=== PATIENT | male | born 1970 | race Caucasian/White ===

== ENCOUNTER 2017-07-31 00:37 | Emergency (ER) | payer SELFPAY ==
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
[2017-07-31 02:03] VITALS: BP 120/78
--- NOTE | 2017-08-01 14:35 | CR ---
EXAM DATE: 07/31/17 PATIENT'S AGE: 46 Patient: ERIK ROBINS Facility: [place], [place] Site . Site : [id number] Study: XRay Chest [id number]/24/[id number] 1:15:33 AM Ordering Physician: Regan Delatorre Final Report: INDICATION: Shortness of breath TECHNIQUE: Chest radiograph 3 views COMPARISON: None FINDINGS: Mediastinum: The heart silhouette is normal in size and morphology. The mediastinum is normal in appearance. Lungs: Bilateral hyperinflation is present and suggestive of moderate pulmonary emphysema. No sign of pleural effusion seen. No pneumothorax is identified. Bones and soft tissue: Unremarkable for age. IMPRESSION: 1. Bilateral hyperinflation is present and suggestive of moderate pulmonary emphysema. Dictated by: Vladislav Soares MD @ 07/31/2017 01:17:42 (Electronic Signature) Report Signed by Proxy. [facility]
== END 2017-07-31 02:00 | disposition home or self-care (01) ==
LOC: MW.ED 00:37
DX: L25.9 Unspecified contact dermatitis, unspecified cause (principal); R50.9 Fever, unspecified; R53.81 Other malaise
CPT/HCPCS: 36415; 71046; 71046-26; 85025; 87081; 87880; 99283